=== PATIENT | male | born 1995 | race African-American/Black ===

== ENCOUNTER 2020-12-23 23:01 | Emergency (ER) | payer OTHER ==
[~2020-12-23] VITALS: Ht 180.3 cm; Wt 106.6 kg
--- NOTE | 2020-12-23 23:10 | NUR ---
DR. IDMAS AT BEDSIDE MSE IN PROGRESS.
[2020-12-23] MEDS ORDERED: IBUPROFEN 800 MG TABLET PO ONE (23:15)
--- NOTE | 2020-12-23 23:16 | NUR ---
XRAY AT BEDSIDE
[2020-12-23] MEDS ORDERED: IBUPROFEN 800 MG TABLET ONE (23:34)
[2020-12-24] MEDS ORDERED: NAPR-1164 PO (00:30)
--- NOTE | 2020-12-24 00:38 | NUR ---
Patient discharged to home in stable condition. No c/o pain or discomfort. DENISE wrap bandage applied to right wrist. Written and verbal after care instructions given. Patient verbalizes understanding of instructions. Steady gait. Stressed follow up or return to ER for worsening s/s.
[2020-12-24 00:39] VITALS: BP 144/90
== END 2020-12-24 00:40 | disposition home or self-care (01) ==
LOC: ER 23:05
DX: S83.91XA Sprain of unspecified site of right knee, initial encounter (principal); S63.501A Unspecified sprain of right wrist, initial encounter; W18.30XA Fall on same level, unspecified, initial encounter; Y93.02 Activity, running; Y92.89 Other specified places as the place of occurrence of the external cause; Y99.0 Civilian activity done for income or pay; Y35.891A Legal intervention involving other specified means, law enforcement official injured, initial encounter
CPT/HCPCS: 73110; 73130; 73562; A4663